=== PATIENT | female | born 1985 | race Caucasian/White ===

== ENCOUNTER → 2024-11-21 | Outpatient (CLI) | payer OTHER ==
[2024-11-21 07:39] LABS: BASO # 0.03 K/mm3 (0.02-0.10); EOS # 0.21 K/mm3 (0.04-0.40); EOS % 1.9 % (1.0-5.0); HEMATOCRIT 42.1 % (37.0-47.0); HEMOGLOBIN 13.6 g/dL (12.5-16.0); LYMPH# 3.52 K/mm3 (1.50-4.00); MEAN CELL VOLUME 92 fl (78-100); MEAN CORPUSCULAR HEMOGLOBIN 30 pg (27-31); MEAN CORPUSCULAR HGB CONC 32 g/dL (33-37); MEAN PLATELET VOLUME 10.3 fl (7.4-10.4); MONO # 0.48 K/mm3 (0.20-0.80); NEU # 6.62 K/mm3 (1.40-6.50); PLATELET COUNT 264 K/mm3 (130-400); RED BLOOD COUNT 4.57 M/mm3 (4.10-5.30); RED CELL DISTRIBUTION WIDTH 12.6 % (11.5-14.5); WHITE BLOOD COUNT 10.9 K/mm3 (4.8-10.8)
[2024-11-21 07:48] LABS: ALBUMIN 4.7 g/dL (3.5-5.0)
[2024-11-21 07:50] LABS: CALCIUM 9.8 mg/dL (8.3-10.5)
[2024-11-21 07:51] LABS: TOTAL PROTEIN 7.9 g/dL (6.4-8.3)
[2024-11-21 07:53] LABS: TOTAL BILIRUBIN 0.2 mg/dL (0.2-1.2)
[2024-11-21 17:01] LABS: FOLLICLE STIMULATING HORMONE 4.6 mIU/mL (()); LUTENIZING HORMONE 3.7 mIU/mL (()); PROGESTERONE 6.2 ng/mL (())
== END ==
LOC: LAB 07:29
PROVIDERS: Family Medicine
DX: I10 Essential (primary) hypertension (principal); N91.1 Secondary amenorrhea; E78.5 Hyperlipidemia, unspecified; E55.9 Vitamin D deficiency, unspecified

== ENCOUNTER → 2024-12-08 | Outpatient (CLI) | payer OTHER | LOC: AMSURD 16:59 | DX: R00.2 Palpitations (principal) ==

== ENCOUNTER → 2025-01-03 | Outpatient (CLI) | payer OTHER | LOC: RAD 09:37 | DX: I67.7 Cerebral arteritis, not elsewhere classified (principal); G37.9 Demyelinating disease of central nervous system, unspecified; G93.89 Other specified disorders of brain ==

== ENCOUNTER → 2025-01-10 | Outpatient (CLI) | payer OTHER ==
[2025-01-10 08:59] LABS: HEMATOCRIT 42.2 % (37.0-47.0); HEMOGLOBIN 13.5 g/dL (12.5-16.0); MEAN CELL VOLUME 93 fl (78-100); MEAN CORPUSCULAR HEMOGLOBIN 30 pg (27-31); MEAN CORPUSCULAR HGB CONC 32 g/dL (33-37); MEAN PLATELET VOLUME 9.9 fl (7.4-10.4); PLATELET COUNT 338 K/mm3 (130-400); RED BLOOD COUNT 4.55 M/mm3 (4.10-5.30); WHITE BLOOD COUNT 19.5 K/mm3 (4.8-10.8)
[2025-01-10 09:45] LABS: BAND 1 % (0-10); NEUTROPHILS 53 % (42-75)
[2025-01-10 09:46] LABS: LYMPHOCYTE 42 % (20-51); MONOCYTE 2 % (3-10)
== END ==
LOC: LAB 08:42
PROVIDERS: Family Medicine
DX: G37.9 Demyelinating disease of central nervous system, unspecified (principal); E03.9 Hypothyroidism, unspecified